=== PATIENT | female | born 1960 | race Caucasian/White ===

== ENCOUNTER 2020-02-24 23:09 | Emergency (ER) | payer OTHER ==
[~2020-02-24] VITALS: Ht 160 cm; Wt 104.3 kg
[2020-02-24] MEDS ORDERED: PERCOCET 5-3251 EACH PO (23:33)
[2020-02-24 23:41] VITALS: BP 156/87
== END 2020-02-24 23:41 | disposition home or self-care (01) ==
LOC: M.ERS 23:09
DX: S63.592A Other specified sprain of left wrist, initial encounter (principal); S80.12XA Contusion of left lower leg, initial encounter; Z88.5 Allergy status to narcotic agent; W01.0XXA Fall on same level from slipping, tripping and stumbling without subsequent striking against object, initial encounter; Y93.89 Activity, other specified; Y92.89 Other specified places as the place of occurrence of the external cause; Y99.8 Other external cause status